=== PATIENT | male | born 1980 | race Caucasian/White ===

== ENCOUNTER 2023-09-03 03:51 | Inpatient (IN) | payer OTHER, SELFPAY ==
[2023-09-03] VITALS (17 sets, daily range): BP systolic 96–145; BP diastolic 71–108; BMI 31.3; BMI 30.5
--- NOTE | 2023-09-03 01:35 | ED.GENMED ---
History of Present Illness
General
Chief Complaint: Chest Pain
Source: patient and ambulance crew
Exam Limitations: none
Time Seen by Provider: 09/03/23 01:26
Nursing documentation reviewed up to this point in time: agreed with
History of Present Illness
History of Present Illness:
This is a 43-year-old gentleman who reports no significant past medical history complains of substernal chest pain that began around 11:30 PM tonight. Persistent described as a heaviness, pressure. He admits to somewhat similar chest pain that
occurred perhaps 5 years ago which he attributed to stressful job. He did not seek medical care at that time.
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
He arrives via EMS. Prehospital EKG concerning for STEMI with ST segment elevations high laterally as well as anteriorly with Q waves noted high laterally and anteriorly with reciprocal ST depression inferiorly.
Prehospital STEMI alert initiated and justice professor notified. Prehospital EKG sent to education coordinator via [place] text.
No old EKGs to compare. Patient has had only 1 previous ED visit September 2022 for head injury/scalp laceration.
He takes no medicines on a daily basis.
Prehospital he he received 324 mg chewable aspirin, 3 sublingual nitroglycerin with no improvement in chest pain. He did receive 88 mcg IV fentanyl for pain with brief hypotension post fentanyl and nitroglycerin which responded promptly to small
bolus of IV fluids.
BP upon arrival 140/100. He continues with substernal chest pain, nonradiating but mildly improved. No other associated symptoms.
Past History
Past History
ED Past Medical History: None
ED Past Surgical History: Orthopedic
Social History
Tobacco: Smoker
Alcohol: Former (Reports no alcohol for the past 2 years)
Drug: None
Personal:
Living: with family
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
Family History
Family History: CAD (Patient believes his father has 'something with his heart' but no prior MN); Negative Early CAD
Phy Exam
Physical Exam
Physical Exam:
GENERAL: 43-year-old gentleman appears his stated age, awake and alert, appears in no acute distress.
EYE: anicteric
NECK: Supple, nontender, no meningismus, no significant adenopathy.
ENT: oral mucosa is moist. No rhinorrhea.
CARDIAC: Regular rate and rhythm. no murmur.
LUNGS: Clear breath sounds bilaterally, no acute respiratory distress, no wheezes/rales/rhonchi
ABDOMEN: Soft, nondistended, without focal tenderness, normoactive BS.
NEUROLOGICAL: Alert and oriented x3, no focal neuro deficits.
SKIN: Warm and dry, normal color, skin intact. No rash. Significantly callused and thickened skin bilateral hands with moderate dirt embedded bilateral palmar hands and palmar digits.
MUSCULOSKELETAL: No C/C/E. peripheral pulses are full and equal b/l. No palpable tenderness.
PSYCH: Normal and appropriate interaction.
Scores
Heart Score for Chest Pain Patients
STEMI patient?: Yes
Course
Orders/Labs/Results
Orders:
Orders
09/03/23 01:27
Electrocardiogram (*1) Urgent
Reason for Study: Chest Pain
Cardiac Monitoring- Treatment ONCE
EKG- Treatment ONCE
CMP [Comprehensive Metabolic Panel] Urgent
Complete Blood Count/With Diff Urgent
PTT Urgent
Troponin I Urgent
MDM/Problems Addressed
Differential Diagnosis Includes:
Acute chest pain with EKG concerning for STEMI.
Pre-Hospital STEMI alert initiated.
Patient arrives hemodynamically stable, awake and alert, chest pain has improved but has not resolved.
Repeat EKG similar to prehospital EKG.
Patient will be given IV heparin bolus 5000 units along with Brilinta 180 mg chewed and monitor shows normal sinus rhythm in the 80s with systolic blood pressure 144, will give an IV dose of Lopressor 5 mg.
*Pulse Oximetry
Patient hypoxic: no
*EKG
Interpreted by ED Provider?: Yes
Interpretation: abnormal
Comparison EKG: no comparison EKG present
Rate: normal
Rhythm: sinus
[place]: normal axis
Interval: normal interval
QRS Pattern: poor R-wave progression
Ischemia: ST elevation (ST elevation high laterally as well as mild elevation anteriorly, reciprocal depression inferiorly consistent with STEMI. Q waves noted high laterally and anteriorly.)
*Claims Attorney Interpretation
Rate: normal
Interpretation: normal
Rhythm: sinus
*Critical Care Note
Total Time (30-74mins, 75-104mins- exclusive of procedures): 12
comment:
Critical care statement: A total of 12 minutes of critical care time was provided for this patient. This includes management of unstable vital signs, evaluation of the patient at bedside, reviewing the patient's pertinent medical records, discussion
with consultants, review of old EKGs and review of pertinent medical records. This time with separate from time utilized to perform the aforementioned documented procedures
Update Note
Update Note:
radiation officer at bedside shortly after patient arrival.
Patient remains hemodynamically stable.
Plan for urgent cardiac catheterization.
Labs are pending.
ED Attending Note
-
Portions of this chart may have been created with voice recognition software.� Occasional wrong word or��sound alike� substitutions may have occurred due to the inherent limitations of voice recognition software.
Discharge Plan
Departure
Date of Disposition: 09/03/23
Time of Disposition: 01:46
Admit to: systems testing laboratory technician
Admit to doctor: Jesus
Presentation/result/management discussed w/ accepting MD/DO: cardiology
Condition: Serious
Interventions
Interventions:
*Risk Screen - Suicide Last Done: 09/03/23 01:30
*General Assessment Last Done: 09/03/23 01:30
*Neglect/Abuse Screening Last Done: 09/03/23 01:30
*ED COVID-19 Vaccine History Last Done: 09/03/23 01:30
Discharge Date and Time
Print Language: CYPRIOT
[2023-09-03 01:43] LABS: % Basophils 0.6 % (0-2); % Eosinophils 2.5 % (0-6); % Immature Granulocytes 0.2 % (0-0.5); % Lymphocytes 25.1 % (20.5-51.1); % Monocytes 6.4 % (1.7-9.3); % Neutrophils 65.2 % (42.2-75.2); Absolute Basophils 0.1 10^3/uL (0-0.2); Absolute Eosinophils 0.2 10^3/uL (0-0.7); Absolute Lymphocytes 2.4 10^3/uL (1.2-3.4); Absolute Monocytes 0.6 10^3/uL (0.1-0.6); Absolute Neutrophils 6.2 10^3/uL (1.4-6.5); Hematocrit 43.2 % (39.0-52.0); Mean Corp Hgb Conc. 34.7 g/dL (33.0-37.0); Mean Corpuscular Hgb 30.5 pg (27.0-31.0); Mean Corpuscular Volume 87.8 fL (80.0-94.0); Mean Platelet Volume 10.6 fL (7.4-10.4); Nucleated Red Blood Cells % 0 % (-); Platelet Count 312 10^3/uL (130-400); Red Blood Cell Count 4.92 10^6/uL (4.70-6.10); Red Cell Dist. Width 13.2 % (11.5-14.5); White Blood Cell Count 9.5 10^3/uL (4.8-10.8)
--- NOTE | 2023-09-03 01:45 | ITS.CL.CATH ---
Fluid Dynamicist - Catheterization
Cardiac Catheterization
Procedure Report:
LEFT HEART CATHETERIZATION
Date of Procedure: September 03, 2023
Referring: [place] emergency department
PROCEDURES:
1. Left heart catheterization, coronary angiogram.
2. Ultrasound-guided access
3. Successful percutaneous coronary artery intervention of 95% hazy thrombotic ostial to proximal LAD stenosis with RANJEET I flow--s/p 2 overlapping 3.0 x 18 mm and 3.0 x 12 mm Xience [place] point drug-eluting stents, postdilated with a 3.0 x 20 mm NC
balloon distally at 16 ligia and with a 4.5 x 12 mm NC balloon at 18 ligia proximally with an excellent angiographic and IVUS guided result.
4. Intravascular ultrasound (IVUS)
INDICATION: 43-year-old gentleman with no known past medical history, tobacco abuse (smoking half a pack of cigarettes a day), drug abuse (meth and cocaine-last use may be about 2 weeks ago per ) who presents with sudden onset substernal chest
discomfort starting around 11:30 PM on September 02, 2023 found to have a EKG on presentation concerning for anteroseptal and lateral injury pattern for which heart catheterization team was emergently activated. After informed consent patient was
brought up to the heart catheterization lab for emergent heart catheterization to rule out obstructive CAD. In the emergency department he received 325 mg of aspirin, 5000 units of unfractionated IV heparin, 180 mg of Brilinta, 3 sublingual
nitroglycerin and 5 mg of IV Lopressor with chest discomfort persisted at 5 out of 10.
ACCESS: Right radial artery, 6Fr. sheath, under ultrasound guidance
HEMODYNAMICS : (mmHg)
AO (s/d) : 133/108
LV (s/d) : 117/27
LVEDP : 41
CORONARY FINDINGS
DOMINANCE: Right
LEFT MAIN: The left main is a large-caliber, very short, almost cloacal in nature with minimal luminal irregularities
LEFT ANTERIOR DESCENDING: The left anterior descending artery is a large-caliber vessel which gives rise to 1 major diagonal branch which has a 95% hazy thrombotic ostial to proximal stenosis with RANJEET I flow into the distal vessels, which is the
culprit of presenting acute coronary syndrome. The diagonal branch is a medium caliber vessel which has diffuse 50 to 60% stenosis in the proximal portion. Mid LAD has long diffuse mood 40 to 50% stenosis
CIRCUMFLEX: The left circumflex artery is a medium to large caliber vessel which gives rise to 2 major obtuse marginal branches and the left posterolateral branch. There is minimal luminal irregularities.
RIGHT CORONARY ARTERY: The right coronary is a large-caliber vessel which gives rise to the right posterior descending artery and the right posterolateral system. There is minimal luminal irregularities. Distal RCA has a bend before the takeoff of
the RPDA and the right posterolateral branch however with the tortuosity cannot rule out eccentric 30% stenosis
CORONARY INTERVENTION:
RADIATION SUMMARY: Fluoro Time (min): 22.1 Dose (mGy): 7.11, DAP (Gy.cm2) : 146.9
Closure Device: Vascular band over right radial artery, 11 cc of air
CONCLUSIONS
1. Successful percutaneous coronary artery intervention of 95% hazy thrombotic ostial to proximal LAD stenosis with RANJEET I flow--s/p 2 overlapping 3.0 x 18 mm and 3.0 x 12 mm Xience [place] drug-eluting stents, postdilated with a 3.0 x 20 mm NC
balloon distally at 16 ligia and with a 4.5 x 12 mm NC balloon at 18 ligia proximally with an excellent angiographic and IVUS guided result.
2. The diagonal branch is a medium caliber vessel which has diffuse 50 to 60% stenosis in the proximal portion. Mid LAD has long diffuse mood 40 to 50% stenosis
3. Nonobstructive coronary artery disease otherwise.
4. Significantly elevated LVEDP at 41 mmHg.
RECOMMENDATIONS
1. Uninterrupted dual antiplatelet therapy given presentation with acute coronary syndrome with daily baby aspirin and Brilinta 90 mg twice daily for at least 1 year, high intensity statin and beta-maia as tolerated.
2. Wean radial band per protocol.
3. Close monitoring on telemetry.
4. Echocardiogram to assess biventricular function.
5. Aggressive management of cardiovascular risk factors.
6. Strongly encouraged complete abstinence from tobacco and drug use
7. Referral for outpatient cardiac rehab.
Ashley Howell MD, FACC, [facility]
[2023-09-03 01:59] LABS: APTT 125.3 Sec (23.4-35.0)
--- NOTE | 2023-09-03 02:04 | EDRN ---
Refer to paper chart for initial documentation.
[2023-09-03 02:15] LABS: Troponin I 0.053 ng/ml
[2023-09-03 02:16] LABS: ACT-LR - POC 268 Seconds (116-155)
[2023-09-03 02:21] LABS: ALT (SGPT) 33 U/L (0-50); AST (SGOT) 29 U/L (17-59); Alkaline Phosphatase 101 U/L (38-126); Blood Urea Nitrogen 18 mg/dl (9-20); Calcium 9.2 mg/dl (8.4-10.2); Carbon Dioxide 27 mmol/L (22-30); Chloride 103 mmol/L (98-107); Estimated Creatinine Clearance 108 ml/min; Glucose 234 mg/dl (70-99); Potassium 4.4 mmol/L (3.5-5.1); Sodium 136 mmol/L (135-145); Total Bilirubin 0.5 mg/dl (0.2-1.3); Total Protein 7.1 g/dl (6.3-8.2); eGFR > 60.00
[2023-09-03 02:34] LABS: ACT-LR - POC 263 Seconds (116-155)
[2023-09-03 02:45] LABS: ACT-LR - POC 236 Seconds (116-155)
[2023-09-03 02:50] LABS: ACT-LR - POC 245 Seconds (116-155)
[2023-09-03 03:00] LABS: ACT-LR - POC 324 Seconds (116-155)
[2023-09-03 03:18] LABS: Albumin 4.5 g/dl (3.5-5.0)
--- NOTE | 2023-09-03 03:44 | HPS.HSE ---
Addendum entered and electronically signed by Ashley Howell MD 09/03/23 04:04:
I spoke to the after the H&P was signed who also informed me that patient has a history of cocaine and meth abuse with last possible use 2 weeks ago. Will add on a urine drug screen and correctional counselor in regards to drug abstinence. She also noted
family history which is very strong for diabetes.
Ashley Howell MD, [facility], [facility]
Original Note:
Family Physician
-
Family Physician: NOT KNOW UNKNOWN - PT DOES
Chief Complaint
-
chest PAin
History of Present Illness
43-year-old gentleman with no known past medical history, tobacco abuse (smoking half a pack of cigarettes a day) who presents with sudden onset substernal chest discomfort starting around 11:30 PM on September 02, 2023 found to have a EKG on
presentation concerning for anteroseptal and lateral injury pattern for which heart catheterization team was emergently activated. After informed consent patient was brought up to the heart catheterization lab for emergent heart catheterization to
rule out obstructive CAD. In the emergency department he received 325 mg of aspirin, 5000 units of unfractionated IV heparin, 180 mg of Brilinta, 3 sublingual nitroglycerin and 5 mg of IV Lopressor with chest discomfort persisted at 5 out of 10.
Medical History
Past Medical History
Past Medical History: Reports None and Other
Additional Past Medical History:
No Known PMHx
Past Surgical History: Reports Other (RLE injury with fracture/repair)
Social History
Tobacco: Smoker (1/2 ppd)
Alcohol: Occasional
Drug: None
Personal:
Living: With Family
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
Family History
Family History: Not pertinent
Allergies / Home Medications
Allergies reflects when Allergies were last updated in [employer].
Home Medications with original date entered in [employer]
Allergy/Medication List:
NKDA
No regular medications
Review of Systems
-
A 12 point ROS was completed and negative except as noted: Yes
Physical Exam
Vital Signs
Vital Signs
Temp Pulse Resp BP Pulse Ox
97.4 F 87 16 143/108 98
09/03/23 01:30 09/03/23 01:30 09/03/23 01:30 09/03/23 01:30 09/03/23 01:30
Physical Exam
General: Well Developed, Well Nourished, Appears in Distress and Pain (02/20)
HEENT: Moist mucous membranes and PERRLA
Respiratory: Rales
Cardiac: S1/S2, Tachycardia and JVD; No Murmur, Rub, Peripheral Edema or Carotid Bruits
Breast: Deferred by me
GI: Soft, Non Tender, Non Distended and Normal Bowel Sounds
Genito-urinary: Deferred by me
Musculoskeletal: No Clubbing, No Cyanosis and No Edema
Skin: Warm and Dry
Neuro: AO x 3
Psych: Anxious and Other (in distress/screaming)
Laboratory Results
-
09/03/23 01:37
Laboratory Results
APTT 125.3 Sec (23.4-35.0) H 09/03/23 01:37
Total Bilirubin 0.5 mg/dl (0.2-1.3) 09/03/23 01:37
AST 29 U/L (17-59) 09/03/23 01:37
ALT 33 U/L (0-50) 09/03/23 01:37
Alkaline Phosphatase 101 U/L (38-126) 09/03/23 01:37
Troponin I 0.053 ng/ml H* 09/03/23 01:37
Data Reviewed
-
Diagnostic Radiology: Image Personally Visualized and interpreted
Medical Tests (Nuc Med, Echo, EKG etc): Image Personally Visualized and interpreted
Lab Data: Labs Reviewed by me
Old Records: Reviewed
Impression/Plan
-
IMPRESSION: 43 yo with tobacco abuse here with anteroseptal and anterolateral ST elevation UT
STEMI--95% Proximal Hazy thrombotic ostial LAD occlusion with RANJEET I flow--s/p 2 overlapping 3.0 x 18 mm and 3.0 x 12 mm Xience [place] drug-eluting stents, postdilated with a 3.0 x 20 mm NC balloon distally at 16 ligia and with a 4.5 x 12 mm NC
balloon at 18 ligia proximally with an excellent angiographic and IVUS guided result.
Tobacco abuse
Prior Leg injury needing repair
PLAN:
1. Uninterrupted dual antiplatelet therapy given presentation with acute coronary syndrome with daily baby aspirin and Brilinta 90 mg twice daily for at least 1 year, high intensity statin and beta-maia as tolerated.
2. Wean radial band per protocol.
3. Close monitoring on telemetry.
4. Echocardiogram to assess biventricular function.
5. Aggressive management of cardiovascular risk factors.
6. Referral for outpatient cardiac rehab.
Ashley Howell MD, FACC, [facility]
[2023-09-03] MEDS: CRESTOR 40 MG PO ×2 (04:26→16:37)
[2023-09-03] MEDS: TYLENOL 650 MG PO ×2 (04:26→22:25)
--- NOTE | 2023-09-03 05:53 | PTCARENOTE ---
Pt rec'd from cath laboratory technician awake,alert. Right Radial site with R band in place. good radial pulse, no bleeding or hematoma noted. sinus on telemetry with freq pvc's. vs, post ecg completed.
[2023-09-03 09:19] LABS: % Basophils 0.6 % (0-2); % Eosinophils 0.9 % (0-6); % Immature Granulocytes 0.3 % (0-0.5); % Lymphocytes 13.2 % (20.5-51.1); % Monocytes 9.7 % (1.7-9.3); % Neutrophils 75.3 % (42.2-75.2); Absolute Basophils 0.1 10^3/uL (0-0.2); Absolute Eosinophils 0.1 10^3/uL (0-0.7); Absolute Lymphocytes 1.6 10^3/uL (1.2-3.4); Absolute Monocytes 1.1 10^3/uL (0.1-0.6); Absolute Neutrophils 8.8 10^3/uL (1.4-6.5); Hematocrit 44.5 % (39.0-52.0); Hemoglobin 15.4 g/dL (13.0-18.0); Mean Corp Hgb Conc. 34.6 g/dL (33.0-37.0); Mean Corpuscular Hgb 30.7 pg (27.0-31.0); Mean Corpuscular Volume 88.6 fL (80.0-94.0); Mean Platelet Volume 10.8 fL (7.4-10.4); Nucleated Red Blood Cells % 0 % (-); Platelet Count 317 10^3/uL (130-400); Red Blood Cell Count 5.02 10^6/uL (4.70-6.10); Red Cell Dist. Width 13.2 % (11.5-14.5); White Blood Cell Count 11.7 10^3/uL (4.8-10.8)
[2023-09-03 09:34] LABS: Blood Urea Nitrogen 18 mg/dl (9-20); Calcium 9.9 mg/dl (8.4-10.2); Carbon Dioxide 27 mmol/L (22-30); Chloride 104 mmol/L (98-107); Estimated Creatinine Clearance 121 ml/min; Glucose 111 mg/dl (70-99); Potassium 4.6 mmol/L (3.5-5.1); Sodium 136 mmol/L (135-145); Total Cholesterol 219 mg/dl (50-199); Triglyceride 319 mg/dl (10-149); Very Low Density Lipoprotein 63 mg/dl (0-30); eGFR > 60.00
[2023-09-03] MEDS: TOPROL XL 25 MG PO (09:45)
[2023-09-03 10:05] LABS: HDL Cholesterol 42 mg/dl; LDL Cholesterol, Calculated 114 mg/dl; Magnesium 2.3 mg/dl (1.6-2.3)
--- NOTE | 2023-09-03 10:32 | W.PN.CARDCBS ---
Addendum entered and electronically signed by López Puckett DO 09/03/23 13:17:
I saw and examined the patient.
The Pharmacy Technician Instructor's note was reviewed and I agree with the note.
Comment:
Plan:
Reviewed his cath
Reviewed meds and need for compliance.
Discussed smoking and substance abuse cessation and his risk of recurrent TX
Being transitioned from Brilinta to Plavix due to no insurance
Await echo
LDL goal is <70.
Cardiac rehab eval.
Original Note:
Today's Communication / Plan
-
Echo today
change from brilinta-->plavix in AM
trend troponin to peak
cardiac rehab
nicoderm patch
monitor on tele for another 48 hours
Impression / Plan
-
PCP: None
CDY: Ashley Howell MD
43 y/o, no PMH but chronic tobacco abuse as well as recent recreational drug abuse with cocaine and meth. FH sig for DM. Called EMS after acute onset SSCP/tightness starting around 11:30pm, prehospital EKG with anteroseptal and lateral STEMI.
Brought urgently to semiconductor lab technician, now s/p ost-prox LAD PCI w/2 overlapping BROOKE for a 95% thrombotic lesion.
IMPRESSION:
Anterolateral STEMI
s/p LAD PCI w/2 overlapping BROOKE
Residual CAD- mid LAD 40-50%, prox D1 50-60%
Hyperlipidemia
Elevated glucose
Tobacco abuse
Recreational Drug abuse
PLAN:
Tele- NSR w/frequent PVC/Bigemeny, 3-8 NSVT
radial cath site stable
1st Trop 0.053- will trend to peak
Still with residual chest discomfort post cath- improving over time
Started on DAPT w/asa, brilinta- he has no medical/prescription insurance- will change out to plavix in AM
New start Toprol XL 25/d- first dose this AM
Will start low dose lisinopril 2.5mg in AM
Lipid profile noted- new to Crestor 40/d
Echo done this AM- results pending
Check HgbA1C for elevated glucose
Discussed with patient and the absolute need for medication compliance as well as tobacco/drug use and the need for absolute cessation starting today- will start nicoderm patch
He has no primary doctor and recommended that he find one and establish care
Cardiac rehab consulted
Followup at [facility] arranged
Progress Note - Operations Support Professionals
Subjective
Date of Service: September 03, 2023
2/10 chest discomfort that has been improving since arrival to IVU
denies any pain that was similar to prior chest pain
radial cath site without pain but c/o 'odd feeling' up the arm to shoulder
Objective
Labs:
09/03/23 08:59
09/03/23 08:59
Labs
Hgb 15.4 g/dL (13.0-18.0) 09/03/23 08:59
Hct 44.5 % (39.0-52.0) 09/03/23 08:59
Plt Count 317 10^3/uL (130-400) 09/03/23 08:59
APTT 125.3 Sec (23.4-35.0) H 09/03/23 01:37
Sodium 136 mmol/L (135-145) 09/03/23 08:59
Potassium 4.6 mmol/L (3.5-5.1) 09/03/23 08:59
BUN 18 mg/dl (9-20) 09/03/23 08:59
Creatinine 0.8 mg/dL (0.7-1.3) 09/03/23 08:59
Glucose 111 mg/dl (70-99) H 09/03/23 08:59
Troponins
09/03/23 09/03/23 09/03/23
01:37 03:45 09:45
Troponin I 0.053 H* Cancelled Cancelled
09/03/23 09/03/23
13:30 15:45
Troponin I Cancelled Cancelled
Vital Signs and I&O:
Vital Signs
Temp Pulse Resp BP Pulse Ox
97.5 F 84 20 125/89 96
09/03/23 07:11 09/03/23 09:45 09/03/23 07:11 09/03/23 09:45 09/03/23 07:11
Vital Signs
Temp Pulse Resp BP Pulse Ox
97.5 F 84 20 125/89 96
09/03/23 07:11 09/03/23 09:45 09/03/23 07:11 09/03/23 09:45 09/03/23 07:11
Intake & Output
09/01/23 09/02/23 09/03/23 09/04/23
06:59 06:59 06:59 06:59
Output Total 575 / 575
Balance -575 / -575
Physical Exam
Physical Exam
AAOx3, MAEE 5/5
RRR S1 S2 no murmurs
CTA bilat, non labored
soft abd, + bs
right radial cath site dressing CDI, no ht/bleeding, non tender with strong palpable pulse
RUE pain is non reproducible, pt can move arm without limitation, no skin changes or swelling noted
bilat extremities w/palpable distal pulses, no edema
[2023-09-03 11:23] LABS: Glycohemoglobin (HgbA1c) 6.2 % (4.0-5.6)
[2023-09-03] MEDS: NICODERM TRANSDERMAL 21 MG TRANSDERM (11:52)
--- NOTE | 2023-09-03 12:36 | CM ---
Chart reviewed. Patient is independent of ADLS, lives with his in a [address], [address], 0 DME. Patient without health insurance. Phone call placed to [facility]. Plan is for the patient to return home. CM to follow
[2023-09-03 13:47] LABS: Amphetamines Positive (Negative); Methamphetamines Positive (Negative)
[2023-09-03 13:48] LABS: Barbiturates Negative (Negative); Benzodiazepines Negative (Negative); Buprenorphine Negative (Negative); Cocaine Negative (Negative); Marijuana Negative (Negative); Methadone Negative (Negative); Opiates Negative (Negative); Phencyclidine Negative (Negative); Tricyclic Antidepressants Negative (Negative)
[2023-09-03 14:19] LABS: Fentanyl, Urine Positive (Negative)
[2023-09-03] MEDS: NITROSTAT (SUBLINGUAL) 0.400000000000000022 MG SL (15:03)
--- NOTE | 2023-09-03 15:04 | PTCARENOTE ---
Addendum entered by Dang Zaragoza RN 09/03/23 15:28:
Nasal cannula at 3 liters. VSS. JV BASEBALL COACH at pt's bedside. Will monitor.
Original Note:
Pt states that he is very uncomfortabe. Pt c/o 5 out of 10 chest discomfort. He states that it feels like spasms. EKG obtsined, 1 sl NTG given, troponin drawn. Will notify MD.
--- NOTE | 2023-09-03 15:30 | PTCARENOTE ---
Pt sleeping. Will monitor.
--- NOTE | 2023-09-03 16:48 | PTCARENOTE ---
At this time, pt states that his chest discomfort has returned to 2 out of 10 on pain scale. Pt stated that he slept a little and the O2 helped. Pt states that he is definately more comfortable. Will monitor.
[2023-09-03] MEDS: LOVENOX 40 MG SC (18:08)
[2023-09-03] MEDS: BRILINTA 90 MG PO (19:42)
--- NOTE | 2023-09-03 21:06 | PTCARENOTE ---
Pt rec'd at change of shift awake,alert c/o 3 out of 10 'ache in chest. Pt also c/o mild discomfort at right radial site. DDI, no swelling or hematoma noted. Sinus on telemetry. CHF book and teaching started with pt and spouse. Pt's spouse inquired
about hgba1c result. Spouse stated that pt's siblings have diabetes. education started.
--- NOTE | 2023-09-03 22:39 | PTCARENOTE ---
Pt reports feeling restless,not able to completely fall asleep. achy, medicated with Tylenol.
[2023-09-04 05:02] VITALS: BP 110/80
[2023-09-04 05:19] VITALS: BMI 30.3
[2023-09-04 05:33] LABS: Hematocrit 46.7 % (39.0-52.0); Hemoglobin 16.2 g/dL (13.0-18.0); Mean Corp Hgb Conc. 34.7 g/dL (33.0-37.0); Mean Corpuscular Hgb 30.4 pg (27.0-31.0); Mean Corpuscular Volume 87.6 fL (80.0-94.0); Mean Platelet Volume 10.6 fL (7.4-10.4); Platelet Count 300 10^3/uL (130-400); Red Blood Cell Count 5.33 10^6/uL (4.70-6.10); Red Cell Dist. Width 13.3 % (11.5-14.5); White Blood Cell Count 13.8 10^3/uL (4.8-10.8)
[2023-09-04 06:02] LABS: Blood Urea Nitrogen 13 mg/dl (9-20); Calcium 9.8 mg/dl (8.4-10.2); Carbon Dioxide 31 mmol/L (22-30); Chloride 100 mmol/L (98-107); Estimated Creatinine Clearance 106 ml/min; Glucose 122 mg/dl (70-99); Potassium 4.5 mmol/L (3.5-5.1); Sodium 135 mmol/L (135-145); eGFR > 60.00
[2023-09-04 07:45] VITALS: BP 119/86
[2023-09-04] MEDS: TOPROL XL 25 MG PO ×2 (08:53→10:14)
[2023-09-04] MEDS: LOW STRENGTH ASPIRIN 81 MG PO (08:53)
[2023-09-04] MEDS: ZESTRIL 2.5 MG PO (08:53)
[2023-09-04] MEDS: NICODERM TRANSDERMAL 21 MG TRANSDERM (08:53)
[2023-09-04] MEDS: PLAVIX 600 MG PO (08:55)
--- NOTE | 2023-09-04 09:37 | W.PN.CARDCBS ---
Addendum entered and electronically signed by Ashley Howell MD 09/04/23 20:41:
I saw and examined the patient.
The Fisher Mussel's note was reviewed and I agree with the note.
Comment: Overall doing well. No recurrent CP today. Breathing mildly labored when laying flat. No issues at right radial site.
Vitals reviewed. Labwork reviewed. ECG with recent anterior and anteroseptal infarct. Exam with well appearing male in NAD, awake, alert, oriented x 3, and daughter is at bedside, + JVD, Lungs with mildly decreased BS at bases, RR, normal S1
and S2. no m/r/g, abd soft, NT, ND, + BS, no LE edema. Radial site is dressed without hematoma or bruit.
Echo reviewed with LVEF 35-40% with WMA in LAD region.
Reccs:
1. Cont med rx for STEMI--DAPT, statin, BB. Increase Toprol given NSVT on tele. Cont lisinopril in setting of new ischemic CM and add aldactone. Brilinta switched to plavix due to insurance issues.
2. Low dose diuretic today to optimize filling pressures.
3. Diabetic education given new pre-diabetes.
4. Counseled at length about complete abstinence from tobacco and drug use.
5. Monitor another 24hrs given frequent NSVT and uptitration of GDMT.
6. Outpt cardiac rehab referral if affordable.
Ashley Howell MD
Addendum: Int he evening I was called back as patient extremely stressed out after [facility] given he was notified about hospital bill and payment plans etc and wanting to leave AMA. I came back and had long discussion with patient and
in regards to risks and benefits and finally patient agreeable to staying for close monitoring overnight.
Original Note:
Today's Communication / Plan
-
20mg IV lasix x1 dose
adding spironolactone, increase metoprolol
community health educator/dietary consult for pre-diabetes
monitor on tele another 24 hours
anticipate home in AM
Impression / Plan
-
PCP: None
CDY: Ashley Howell MD
43 y/o, no PMH but chronic tobacco abuse as well as recent recreational drug abuse with cocaine and meth. FH sig for DM. Called EMS after acute onset SSCP/tightness starting around 11:30pm, prehospital EKG with anteroseptal and lateral STEMI.
Brought urgently to laboratory mechanical technician, now s/p ost-prox LAD PCI w/2 overlapping BROOKE for a 95% thrombotic lesion.
Echo 09/02- mod decreased LVSF, EF 30-35%, mid-apical anterior and post septal HK, mid-dis anterior and apical HK, mild CLVH, no sig valvular disease
IMPRESSION:
Anterolateral STEMI
s/p LAD PCI w/2 overlapping BROOKE
Residual CAD- mid LAD 40-50%, prox D1 50-60%
Hyperlipidemia
Elevated glucose/Pre-Diabetes
Tobacco abuse
Recreational Drug abuse
PLAN:
Tele- NSR w/frequent PVC/Bigemeny, 2-3bt NSVT- quieting down over last 24 hours
radial cath site stable
peak Trop 142
Intermittent low level chest discomfort that also has lessened over the last 24 hours
DAPT w/asa, plavix- loaded w/600mg this morning
Tolerating lisinopril and toprol- will increase to 50mg/d,
For GDMT- will add spironolactone 25mg today and one time dose lasix 20mg IV (LVEDP 41 during cath)
Lipid profile noted- new to Crestor 40/d
Echo results noted
XgnA7F=8.2%- diabetes education and dietary consult today
Discussed with patient and the absolute need for medication compliance as well as tobacco/drug use and the need for absolute cessation starting today
He has no primary doctor and recommended that he find one and establish care
Cardiac rehab consulted
Followup at [facility] arranged
Will monitor on tele another 24 hours
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
Subjective
Date of Service: September 04, 2023
Denies palps/dyspnea
mild chest pain overnight again but relieved with oxygen, tylenol
oob to bathroom
Objective
Labs:
09/04/23 05:12
09/04/23 05:12
Labs
Hgb 16.2 g/dL (13.0-18.0) 09/04/23 05:12
Hct 46.7 % (39.0-52.0) 09/04/23 05:12
Plt Count 300 10^3/uL (130-400) 09/04/23 05:12
APTT 125.3 Sec (23.4-35.0) H 09/03/23 01:37
Sodium 135 mmol/L (135-145) 09/04/23 05:12
Potassium 4.5 mmol/L (3.5-5.1) 09/04/23 05:12
BUN 13 mg/dl (9-20) 09/04/23 05:12
Creatinine 0.9 mg/dL (0.7-1.3) 09/04/23 05:12
Glucose 122 mg/dl (70-99) H 09/04/23 05:12
Troponins
09/03/23 09/03/23 09/03/23
01:37 03:45 08:59
Troponin I 0.053 H* Cancelled 133.000 H* D
09/03/23 09/03/23 09/03/23
09:45 13:30 15:02
Troponin I Cancelled Cancelled 142.000 H*
09/03/23 09/03/23 09/04/23
15:45 21:03 05:12
Troponin I Cancelled 105.000 H* D 64.100 H*
Vital Signs and I&O:
Vital Signs
Temp Pulse Resp BP Pulse Ox
98.1 F 86 16 110/80 98
09/04/23 07:43 04/23/24 07:43 09/04/23 07:43 09/04/23 05:02 09/04/23 07:43
Vital Signs
Temp Pulse Resp BP Pulse Ox
98.1 F 86 16 110/80 98
09/04/23 07:43 09/04/23 07:43 09/04/23 07:43 09/04/23 05:02 09/04/23 07:43
Intake & Output
09/02/23 09/03/23 09/04/23 09/05/23
06:59 06:59 06:59 06:59
Intake Total 720 / 720
Output Total 575 / 575 600 / 600
Balance -575 / -575 120 / 120
Physical Exam
Physical Exam
AAOx3, MAEE 5/5
RRR S1 S2 no murmurs
CTA bilat, non labored
soft abd, + bs
right radial cath site without ht/bleeding, non tender
bilat extremities w/palpable distal pulses, no edema
[2023-09-04] MEDS: ALDACTONE 25 MG PO (10:14)
[2023-09-04] MEDS: LASIX 20 MG IV (10:15)
[2023-09-04 11:13] VITALS: BP 96/62
--- NOTE | 2023-09-04 11:32 | CM ---
Chart reviewed. Patient is independent of ADLS, lives with his and daughter in [place], 3 [place], 0 DME. HRSI saw patient Patient currently with no discharge needs. Plan is for the patient to return home. CM to follow
--- NOTE | 2023-09-04 12:52 | PN.DE ---
Diabetes Education
- -
09/04/2023 Diabetes Education Consult
Patient admitted with CP TX. No significant PMH other than recreational drug abuse. He has not been to a doctor for 'years'. A1C on admission 6.2%, Pre-Diabetes, cr .9, eGFR > 60.
Patient is walking in [place] with and daughter, returned to room for diabetes education. On bedside table there are 2 bags of lollipops and a box of honey nut cheerios.
Provided information for outpatient pre diabetes class. Cost is $40.00, (patient has no insurance). He and his are receptive. Reviewed the importance of follow up to prevent onset of diabetes. Provided basic education on nutrition, patient
and state he really does not eat breakfast, lunch is on the run and dinner is not set. Provided examples of better choices. Dietary consult is also ordered.
[2023-09-04 15:24] VITALS: BP 97/73
[2023-09-04] MEDS: CRESTOR 40 MG PO (18:10)
--- NOTE | 2023-09-04 18:12 | PTCARENOTE ---
Pt wanting to leave AMA after speaking with [facility] it sales representative. He was told that he would have a large hospital bill. This was upsetting to him. Nurse, case aide and Dr Howell spoke with Pt to attempt to get him to stay one more night. He wants
to leave, he took himself off of the heart monitor, INT removed by RN. Later Pt agreeing to stay overnight but now refuses to have new INT started.
[2023-09-04] MEDS: LOVENOX 40 MG SC (19:06)
[2023-09-04 19:17] VITALS: BP 117/46
--- NOTE | 2023-09-04 21:38 | PTCARENOTE ---
Assumed care of patient at change of shift w/ spouse and daughter at bedside. Patient AAO3, tele monitor shows SR, and VSS. Right radial dressing intact, pt aware of activity restrictions. Denies any chest pain, but does c/o headache pain. Denies
any blurred vision. This RN offered Tylenol, and patient states 'it doesn't help' and refused medication at this time. Patient reports headache pain has been on and off again for the past year. This RN offered cold wash cloth and eye mask and
patient refused. Pt w/ no IV access and refuses to have one in. Dr. Puckett made aware and no new orders obtained. Call myers in reach, pt can make his needs known.
[2023-09-04 22:20] VITALS: BP 93/60
[2023-09-05 03:52] VITALS: BP 100/66
[2023-09-05 04:06] VITALS: BMI 30.2
[2023-09-05 04:17] LABS: Hemoglobin 15.5 g/dL (13.0-18.0); Mean Corp Hgb Conc. 35.2 g/dL (33.0-37.0); Mean Corpuscular Hgb 30.9 pg (27.0-31.0); Mean Corpuscular Volume 87.6 fL (80.0-94.0); Mean Platelet Volume 10.8 fL (7.4-10.4); Platelet Count 276 10^3/uL (130-400); Red Blood Cell Count 5.02 10^6/uL (4.70-6.10); Red Cell Dist. Width 13.2 % (11.5-14.5)
[2023-09-05 04:54] LABS: Blood Urea Nitrogen 21 mg/dl (9-20); Calcium 9.6 mg/dl (8.4-10.2); Carbon Dioxide 27 mmol/L (22-30); Chloride 101 mmol/L (98-107); Estimated Creatinine Clearance 87 ml/min; Glucose 105 mg/dl (70-99); Potassium 4.3 mmol/L (3.5-5.1); Sodium 133 mmol/L (135-145); eGFR > 60.00
[2023-09-05 06:57] VITALS: BP 98/66
--- NOTE | 2023-09-05 08:47 | W.PN.CARDCBS ---
Addendum entered and electronically signed by Ashley Howell MD 09/05/23 14:35:
I saw and examined the patient.
The Shaper Hand's note was reviewed and I agree with the note.
Comment: Overall doing well. Thankfully patient did not leave AGAINST MEDICAL ADVICE last evening and stayed overnight. No acute issues overnight. He feels well this morning.
Vitals reviewed. Lab work reviewed. ECG with recent anterior and anteroseptal infarct.
Exam with well appearing male in NAD, awake, alert, oriented x 3, at bedside, - JVD, Lungs clear to auscultation bilaterally, RR, normal S1 and S2. no m/r/g, abd soft, NT, ND, + BS, no LE edema. Radial site is dressed without hematoma or
bruit.
Echo reviewed with LVEF 35-40% with WMA in LAD region.
Reccs:
1. Cont med rx for STEMI--DAPT, statin. Decreasing ectopy ventricular ectopy on telemetry. Continue on 50 mg of Toprol-XL along with 2.5 mg of lisinopril and 25 mg of Aldactone. Blood pressures are borderline low however patient is completely
asymptomatic. Brilinta was discontinued in favor of Plavix given lack of insurance and cost issues. Continue daily baby aspirin and 75 mg of Plavix.
2. Counseled at length again about complete abstinence from tobacco and recreational drug use.
3. Stable for discharge from a cardiac standpoint. Outpatient cardiology follow-up will be scheduled. Outpt cardiac rehab referral if affordable.
Ashley Howell MD, [facility], [facility]
Original Note:
Today's Communication / Plan
-
home today with cardiology followup in 2 weeks as scheduled
Impression / Plan
-
PCP: None
CDY: Ashley Howell MD
43 y/o, no PMH but chronic tobacco abuse as well as recent recreational drug abuse with cocaine and meth. FH sig for DM. Called EMS after acute onset SSCP/tightness starting around 11:30pm, prehospital EKG with anteroseptal and lateral STEMI.
Brought urgently to laboratory miller, now s/p ost-prox LAD PCI w/2 overlapping BROOKE for a 95% thrombotic lesion.
Echo 09/02- mod decreased LVSF, EF 30-35%, mid-apical anterior and post septal HK, mid-dis anterior and apical HK, mild CLVH, no sig valvular disease
IMPRESSION:
Anterolateral STEMI
s/p LAD PCI w/2 overlapping BROOKE
Residual CAD- mid LAD 40-50%, prox D1 50-60%
Ischemic Cardiomyopathy
New Acute HFrEF 30-35%
Hyperlipidemia
Elevated glucose/Pre-Diabetes
Tobacco abuse
Recreational Drug abuse
PLAN:
Tele- NSR, no vt/arrhythmia
radial cath site stable
peak Trop 142
no further chest discomfort over the last 24h
DAPT w/asa, plavix, tolerating lisinopril, toprol, spironolactone, crestor
SBP 90-120s- improved with meds
QmsO8Z=4.2%- diabetes education and dietary consult appreciated
Discussed with patient and the absolute need for medication compliance as well as tobacco/drug use and the need for absolute cessation
He has no primary doctor and recommended that he find one and establish care- will need followup for pre-DM
Cardiac rehab consulted
Followup at [facility] arranged
Progress Note - Overlay Operator
Subjective
Date of Service: September 05, 2023
Denies CP/palps/dyspnea
oob ambulating
cath site without pain
Objective
Labs:
09/05/23 04:03
09/05/23 04:03
Labs
Hgb 15.5 g/dL (13.0-18.0) 09/05/23 04:03
Hct 44.0 % (39.0-52.0) 09/05/23 04:03
Plt Count 276 10^3/uL (130-400) 09/05/23 04:03
APTT 125.3 Sec (23.4-35.0) H 09/03/23 01:37
Sodium 133 mmol/L (135-145) L 09/05/23 04:03
Potassium 4.3 mmol/L (3.5-5.1) 09/05/23 04:03
BUN 21 mg/dl (9-20) H 09/05/23 04:03
Creatinine 1.1 mg/dL (0.7-1.3) 09/05/23 04:03
Glucose 105 mg/dl (70-99) H 09/05/23 04:03
Troponins
09/03/23 09/03/23 09/03/23
01:37 03:45 08:59
Troponin I 0.053 H* Cancelled 133.000 H* D
09/03/23 09/03/23 09/03/23
09:45 13:30 15:02
Troponin I Cancelled Cancelled 142.000 H*
09/03/23 09/03/23 09/04/23
15:45 21:03 05:12
Troponin I Cancelled 105.000 H* D 64.100 H*
Vital Signs and I&O:
Vital Signs
Temp Pulse Resp BP Pulse Ox
97.9 F 76 16 100/66 96
09/05/23 06:54 09/05/23 06:54 09/05/23 06:54 09/05/23 03:52 09/05/23 06:54
Vital Signs
Temp Pulse Resp BP Pulse Ox
97.9 F 76 16 100/66 96
09/05/23 06:54 09/05/23 06:54 09/05/23 06:54 09/05/23 03:52 09/05/23 06:54
Intake & Output
09/03/23 09/04/23 09/05/23 09/06/23
06:59 06:59 06:59 06:59
Intake Total 720 / 720 600 / 600
Output Total 575 / 575 600 / 600
Balance -575 / -575 120 / 120 600 / 600
Physical Exam
Physical Exam
AAOx3, MAEE 09/15
RRR S1 S2 no murmurs
CTA bilat, non labored
soft abd, + bs
right radial cath site without ht/bleeding, non tender
bilat extremities w/palpable distal pulses, no edema
[2023-09-05] MEDS: LOW STRENGTH ASPIRIN 81 MG PO (09:07)
[2023-09-05] MEDS: NICODERM TRANSDERMAL 21 MG TRANSDERM (09:07)
[2023-09-05] MEDS: ALDACTONE 25 MG PO (09:07)
[2023-09-05] MEDS: PLAVIX 75 MG PO (09:07)
[2023-09-05] MEDS: ZESTRIL 2.5 MG PO (09:07)
[2023-09-05] MEDS: TOPROL XL 50 MG PO (09:07)
--- NOTE | 2023-09-05 10:26 | W.DS.TRANS ---
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
-
Discharge Instructions:
Discharge Diagnosis/Procedures STEMI, s/p angioplasty and stents x2 to Left
Anterior Descending artery
Diet Low Cholesterol,Diabetic, Carb Controlled
Activity No strenuous activity
Additional Activity For 2 weeks
Driving Restrictions As prior to admission
Other Services Cardiac Rehab
Instructions:
Stand-Alone Forms: DC Instructions- Cath/EP Lab
Changes to Home Medications: Yes
Discharge Medications:
DC Medications w/original date entered in [employer]
aspirin 81 mg chewable tablet (Children's Aspirin) 81 mg PO DAILY #0 tabs 09/04/23
clopidogrel 75 mg tablet 75 mg PO DAILY #90 tabs 09/04/23
lisinopril 2.5 mg tablet 2.5 mg PO DAILY #90 tabs 09/04/23
metoprolol succinate 50 mg tablet,extended release 24 hr 50 mg PO DAILY #90 tabs 09/04/23
nicotine 21 mg/24 hr daily transdermal patch 21 mg transdermal DAILY #28 ea 09/04/23
rosuvastatin 40 mg tablet 40 mg PO QPM #90 tabs 09/04/23
spironolactone 25 mg tablet 25 mg PO DAILY #90 tabs 09/04/23
Home Medication Changes
ALL MEDS ARE NEW
Pending Results: No
== END 2023-09-05 09:49 | disposition home or self-care (01) | DRG 322 ==
LOC: IVU 03:51
PROVIDERS: Nurse Practitioner; ADMITTING PHYSICIAN Internal Medicine Interventional Cardiology; EMERGENCY PHYSICIAN Emergency Medicine
PROC: B2151ZZ Fluoroscopy of Left Heart using Low Osmolar Contrast (ICD-10-PCS; 2023-09-03)
PROC: B2111ZZ Fluoroscopy of Multiple Coronary Arteries using Low Osmolar Contrast (ICD-10-PCS; 2023-09-03)
PROC: 027035Z Dilation of Coronary Artery, One Artery with Two Drug-eluting Intraluminal Devices, Percutaneous Approach (ICD-10-PCS; 2023-09-03)
PROC: 4A023N7 Measurement of Cardiac Sampling and Pressure, Left Heart, Percutaneous Approach (ICD-10-PCS; 2023-09-03)
PROC: B240ZZ3 Ultrasonography of Single Coronary Artery, Intravascular (ICD-10-PCS; 2023-09-03)
DX: I21.09 ST elevation (STEMI) myocardial infarction involving other coronary artery of anterior wall (principal); I47.20 Ventricular tachycardia, unspecified; I25.10 Atherosclerotic heart disease of native coronary artery without angina pectoris; F17.210 Nicotine dependence, cigarettes, uncomplicated; F14.10 Cocaine abuse, uncomplicated; F15.10 Other stimulant abuse, uncomplicated; I25.5 Ischemic cardiomyopathy; E78.5 Hyperlipidemia, unspecified; R73.03 Prediabetes; I49.3 Ventricular premature depolarization; Z83.3 Family history of diabetes mellitus
CPT/HCPCS: 76937; 80048; 80053; 80061; 80306; 80307; 83036; 83735; 84484; 85025; 85027; 85347; 85730; 92978; 93005; 93306; 93458; 99285; C1725; C1753; C1874; C1894; C9606; Q9967

== ENCOUNTER 2023-09-30 09:32 | Emergency (ER) | payer SELFPAY ==
[2023-09-30 09:39] VITALS: BP 105/70
[2023-09-30 09:44] VITALS: BMI 29.8
[2023-09-30 09:51] LABS: % Basophils 0.7 % (0-2); % Eosinophils 2.5 % (0-6); % Immature Granulocytes 0.3 % (0-0.5); % Lymphocytes 24.1 % (20.5-51.1); % Neutrophils 64.4 % (42.2-75.2); Absolute Basophils 0.1 10^3/uL (0-0.2); Absolute Eosinophils 0.2 10^3/uL (0-0.7); Absolute Lymphocytes 1.8 10^3/uL (1.2-3.4); Absolute Monocytes 0.6 10^3/uL (0.1-0.6); Absolute Neutrophils 4.9 10^3/uL (1.4-6.5); Hematocrit 43.9 % (39.0-52.0); Mean Corp Hgb Conc. 34.2 g/dL (33.0-37.0); Mean Corpuscular Hgb 30.4 pg (27.0-31.0); Mean Corpuscular Volume 88.9 fL (80.0-94.0); Mean Platelet Volume 11.1 fL (7.4-10.4); Nucleated Red Blood Cells % 0 % (-); Platelet Count 233 10^3/uL (130-400); Red Blood Cell Count 4.94 10^6/uL (4.70-6.10); Red Cell Dist. Width 12.8 % (11.5-14.5); White Blood Cell Count 7.6 10^3/uL (4.8-10.8)
[2023-09-30 10:00] VITALS: BP 112/76
[2023-09-30 10:03] LABS: ALT (SGPT) 31 U/L (0-50); AST (SGOT) 42 U/L (17-59); Albumin 4.4 g/dl (3.5-5.0); Alkaline Phosphatase 72 U/L (38-126); Blood Urea Nitrogen 16 mg/dl (9-20); Calcium 9.7 mg/dl (8.4-10.2); Carbon Dioxide 27 mmol/L (22-30); Chloride 106 mmol/L (98-107); Estimated Creatinine Clearance 105 ml/min; Glucose 134 mg/dl (70-99); Potassium 4.8 mmol/L (3.5-5.1); Sodium 141 mmol/L (135-145); Total Bilirubin 0.3 mg/dl (0.2-1.3); Total Protein 6.8 g/dl (6.3-8.2); eGFR > 60.00
[2023-09-30 10:15] LABS: Troponin I 0.013 ng/ml
[2023-09-30 11:00] VITALS: BP 119/81
[2023-09-30 12:18] VITALS: BP 98/64
[2023-09-30 13:00] VITALS: BP 113/80
[2023-09-30 13:13] LABS: Troponin I 0.013 ng/ml
--- NOTE | 2023-09-30 13:17 | ED.GENMED ---
History of Present Illness
General
Chief Complaint: Change in Mental Status
Source: patient and spouse
Exam Limitations: none
Time Seen by Provider: 09/30/23 09:35
History of Present Illness
History of Present Illness:
43-year-old male who presents after near syncopal event at home. Patient states he woke up feeling fine. He then noted he had to go to the bathroom and have a bowel movement. He was out on the back porch. He then got sweaty and lightheaded and
called for his . His lowered him to the ground. He states he did not fully pass out. He denies any associated chest pain or shortness of breath. No fevers. Patient recently was taken off of spironolactone on his cardiology follow-up
because his blood pressure was low. Patient now feels fine with no symptoms. Again specifically denies palpitations shortness of breath or chest pain. He is still smoking but trying to cut back.
Past History
Past History
ED Past Medical History: CAD and Hypercholesterolemia
ED Past Surgical History: Orthopedic
Social History
Tobacco: Smoker
Alcohol: Former (Reports no alcohol for the past 2 years)
Drug: Other (Methamphetamines)
Personal:
Living: with family
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
Family History
Family History: CAD (Patient believes his father has 'something with his heart' but no prior PR); Negative Early CAD
Phy Exam
Physical Exam
Physical Exam:
CONSTITUTIONAL Patient alert and oriented to person, place and time. Well-appearing. Vital signs reviewed.
HEAD atraumatic, normocephalic.
EYES eyelids normal to inspection, Pupils equally round and reactive to light, Extraocular muscles intact, Conjunctiva normal, Sclera normal.
NECK normal range of motion, Trachea midline, no jugular venous distention.
RESPIRATORY CHEST No respiratory distress noted, Chest expansion equal, Bilateral breath sounds clear.
CARDIOVASCULAR regular and bradycardic, Heart sounds normal.
ABDOMEN No distention.
BACK normal inspection, no obvious deformities
UPPER EXTREMITY range of motion normal, Motor strength normal, no cyanosis, no edema.
LOWER EXTREMITY range of motion normal, Motor strength normal, no cyanosis, no edema.
NEURO Speech normal, No focal motor deficits, Ludlow coma scale 15, Memory normal, Cranial Nerves intact to screening exam.
SKIN skin warm, dry, and normal in color.
PSYCHIATRIC patient oriented to person place and time, Normal affect.
Course
Orders/Labs/Results
Orders:
Orders
09/30/23 09:34
Electrocardiogram (*1) Urgent
Reason for Study: Syncope
EKG- Treatment ONCE
09/30/23 09:42
CMP [Comprehensive Metabolic Panel] Urgent
Complete Blood Count/With Diff Urgent
Troponin I Urgent
09/30/23 12:40
Troponin I Urgent
Abnormal Lab Results
09/30/23
09:42
MPV 11.1 H fL
(7.4-10.4)
Glucose 134 H mg/dl
(70-99)
09/30/23 09:42
09/30/23 09:42
Vital Signs
Initial and Last Documented VS:
Initial Vital Signs
Temp Pulse Resp BP Pulse Ox
97.6 F 52 18 105/70 98
09/30/23 09:39 09/30/23 09:39 09/30/23 09:39 09/30/23 09:39 09/30/23 09:39
Last Documented Vital Signs
Temp Pulse Resp BP Pulse Ox
97.6 F 50 13 98/64 97
09/30/23 09:39 09/30/23 12:30 09/30/23 12:30 09/30/23 12:18 09/30/23 12:30
MDM/Problems Addressed
MDM/Problems Addressed:
Near syncope, sinus bradycardia
*Pulse Oximetry
Patient hypoxic: no
*EKG
Interpreted by ED Provider?: Yes
Interpretation: abnormal
Rate: bradycardiac
Rhythm: sinus
[address]: right axis deviation
Ischemia: T-wave inversion
*Manager Mechanical Interpretation
Rate: bradycardiac
Interpretation: abnormal
Rhythm: sinus
*Critical Care Note
Total Time (30-74mins, 75-104mins- exclusive of procedures): Not Applicable
Data Reviewed
Review of Other/Old Records Reveals: Operative Reports (Cardiac catheterization report reviewed from 2023) and Discharge Summary
Source: patient and spouse
Prescriptions/Medications Considered But Not Given:
Considered heparin but no clinical concern for in-stent restenosis has no chest pain troponin x 2 negative
Patient Management
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 Recommends decrease Lopressor to 12.5 mg daily and he will follow-up in office this week.)
Escalation/DeEscalation of care consider admission/obs:
Do suspect related to vasovagal event as he fell he cannot have a bowel movement just prior to this. Patient likely has a resting bradycardia due to high dose Lopressor. Will drop his dose as recommended by cardiology associate scientist feels he is safe
for discharge and outpatient follow-up. Cardiology did review his office records today as Dr. Puckett will follow-up in the office
Patient was counseled on importance of smoking cessation.
ED Attending Note
-
Portions of this chart may have been created with voice recognition software.� Occasional wrong word or��sound alike� substitutions may have occurred due to the inherent limitations of voice recognition software.
Discharge Plan
Departure
Patient Disposition: Home (Routine Discharge)
Date of Disposition: 09/30/23
Time of Disposition: 13:23
Patient with high blood pressure during this ER visit?: No
Discharge Problem:
Near syncope, Bradycardia
Instructions: Quitting smoking, Near Fainting (DC)
Prescriptions:
New
metoprolol succinate [Toprol XL] 25 mg tablet extended release 24 hr
12.5 mg PO DAILY Qty: 30 0RF
No Action
rosuvastatin 40 mg Tablet
40 mg PO QPM Qty: 90 3RF
aspirin [Children's Aspirin] 81 mg Tablet,Chewable
81 mg PO DAILY Qty: 0 0RF
clopidogrel 75 mg Tablet
75 mg PO DAILY Qty: 90 3RF
metoprolol succinate 50 mg Tablet Extended Release 24 Hr
50 mg PO DAILY Qty: 90 3RF
lisinopril 2.5 mg Tablet
2.5 mg PO DAILY Qty: 90 3RF
Referrals:
NONE,* [Family Provider] -
Activity Restrictions/Additional Instructions:
We are changing your dose of metoprolol to 12.5 mg please see cardiology this week for follow-up and reevaluation. Return immediately for chest pain, shortness of breath,, passing out episode or any other concerns.
Interventions
Interventions:
*Risk Screen - Suicide Last Done: 09/30/23 09:35
*General Assessment Last Done: 09/30/23 09:35
*Neglect/Abuse Screening Last Done: 09/30/23 09:35
ED- Fall Risk Assessment Last Done: 09/30/23 09:35
*ED COVID-19 Vaccine History Last Done: 09/30/23 09:35
ED- Neurological Assessment Last Done: 09/30/23 09:35
Discharge Date and Time
Print Language: FRENCH
== END 2023-09-30 13:44 | disposition home or self-care (01) ==
LOC: EMR 09:32
PROVIDERS: EMERGENCY PHYSICIAN Emergency Medicine
DX: R55 Syncope and collapse (principal); R00.1 Bradycardia, unspecified; F17.200 Nicotine dependence, unspecified, uncomplicated
CPT/HCPCS: 99284; 80053; 84484; 85025; 93005

== ENCOUNTER → 2023-10-25 14:01 | Outpatient (REF) | payer OTHER, SELFPAY | LOC: HWRCS 14:01 | PROVIDERS: ATTENDING PHYSICIAN Physician Assistant | DX: I25.10 Atherosclerotic heart disease of native coronary artery without angina pectoris (principal); Z95.5 Presence of coronary angioplasty implant and graft; I25.5 Ischemic cardiomyopathy; I50.20 Unspecified systolic (congestive) heart failure | CPT/HCPCS: 93306 ==